=== PATIENT | female | born 1960 | race Caucasian/White ===

== ENCOUNTER 2016-07-22 07:07 | Emergency (ER) | payer OTHER ==
[~2016-07-22] VITALS: Ht 167.6 cm; Wt 93.0 kg
--- NOTE | 2016-07-22 07:23 | ED CARDIAC/CP/PALPITATIONS ---
History of Present Illness General Chief Complaint: Chest Pain Stated Complaint: CP, L ARM AND NECK PAIN, HX OF PE Source: patient, old records Exam Limitations: no limitations Vital Signs & Intake/Output Vital Signs & Intake/Output Vital Signs Date Time Temp Pulse Resp B/P Pulse O2 O2 Flow FiO2 Ox Delivery Rate 07/22 1116 97.5 67 18 138/80 97 Room Air 07/22 0808 97 Room Air 07/22 0717 97.5 86 20 164/97 97 Room Air Allergies Coded Allergies: diphenhydramine (From BENADRYL) (Severe, "MAKES ME CRAZY" 07/22/16) aspirin (BRUISING 07/22/16) Triage Note: PT C/O CP THAT WOKE HER FROM SLEEP LAST NIGHT. STATES MILD SOB, PAIN UNDER LEFT BREAST AND IN LEFT ARM AND NECK. STATES PAIN SIMILIAR TO PE PAIN SHE HAD IN PAST. STATES SHE IS ON ELIQUIS Triage Nurses Notes Reviewed? yes HPI: Patient was awoken at some point during the night with a pressure feeling underneath her left breast. Patient was able to go back to sleep but the pain again woke her up at 5:30 this morning. Patient states that the pain is similar to the pain that she had when she had a pulmonary embolus last September. Patient has been taking her ELIQUIS prescribed. Patient states she feels a little bit short of breath. The pain radiates to her left shoulder. She rates the pain at 6 out of 10. There are no aggravating or mitigating factors. The pain is constant. Past History Travel History Traveled to [place] past 21 day No Medical History Any Pertinent Medical History? see below for history Respiratory: pulmonary embolism Gastrointestinal: GERD Surgical History Surgical History: non-contributory Psychosocial History What is your primary language Kuwaiti Tobacco Use: Never used ETOH Use: occasional use Illicit Drug Use: denies illicit drug use Family History Hx Contributory? No Review of Systems Review of Systems Constitutional: Reports: no symptoms. EENTM: Reports: no symptoms. Respiratory: Reports: see HPI, short of breath. Cardiovascular: Reports: see HPI, chest pain. GI: Reports: no symptoms. Genitourinary: Reports: no symptoms. Musculoskeletal: Reports: no symptoms. Skin: Reports: no symptoms. Neurological/Psychological: Reports: no symptoms. Hematologic/Endocrine: Reports: no symptoms. Immunologic/Allergic: Reports: no symptoms. All Other Systems: Reviewed and Negative Physical Exam Physical Exam General Appearance: well developed/nourished, alert, awake, anxious, moderate distress Head: atraumatic, normal appearance Eyes: Bilateral: PERRL, EOMI. Ears, Nose, Throat: normal pharynx, normal ENT inspection, hearing grossly normal Neck: normal inspection, supple, full range of motion Respiratory: normal breath sounds, chest non-tender, no respiratory distress, lungs clear Cardiovascular: regular rate/rhythm, normal peripheral pulses Gastrointestinal: normal bowel sounds, soft, non-tender, no organomegaly Back: normal inspection, normal range of motion Extremities: normal inspection, normal capillary refill, normal range of motion, no edema Neurologic/Psych: no motor/sensory deficits, awake, alert, oriented x 3, normal mood/affect Skin: intact, normal color, warm/dry Lymphatic: no anterior cervical mi Core Measures ACS in differential dx? Yes ASA ordered for poss ACS? No-ACS ruled out Severe Sepsis Present: No Septic Shock Present: No Progress Differential Diagnosis: AMI, cholecystitis, costochondritis, musculoskeletal pain, myocarditis, pericarditis, pneumonia, pneumothorax, pulmonary embolism Plan of Care: Orders Procedure Date/time Status Heart Healthy Diet 07/22 D Active TROPONIN LEVEL 07/22 1154 Complete Telemetry/Slate Picker 07/22 0729 Active URINALYSIS 07/22 0729 Complete TROPONIN LEVEL 07/22 0729 Complete COMPREHENSIVE METABOLIC PANEL 07/22 0729 Complete CBC WITHOUT DIFFERENTIAL 07/22 0729 Complete EKG 07/22 0708 Active Laboratory Tests 07/22/16 1202: Troponin I < 0.01 07/22/16 0743: Anion Gap 9, Estimated GFR > 60, BUN/Creatinine Ratio 18.6, Glucose 102 H, Calcium 9.5, Total Bilirubin 0.6, AST 26, ALT 42, Alkaline Phosphatase 72, Troponin I < 0.01, Total Protein 7.1, Albumin 4.2, Globulin 2.9, Albumin/ Globulin Ratio 1.4, CBC w Diff NO MAN DIFF REQ, RBC 4.43, MCV 85.2, MCH 28.5, RDW 14.3, MPV 7.6, Gran % 65.5, Lymphocytes % 24.1, Monocytes % 7.8, Eosinophils % 2.2, Basophils % 0.4, Absolute Granulocytes 3.1, Absolute Lymphocytes 1.1 L, Absolute Monocytes 0.4, Absolute Eosinophils 0.1, Absolute Basophils 0, PUBS MCHC 33.5, Urine Color STRAW, Urine Clarity CLEAR, Urine pH 6.5, Ur Specific Garvin <= 1.005, Urine Protein NEG, Urine Ketones NEG, Urine Nitrite NEG, Urine Bilirubin NEG, Urine Urobilinogen 0.2, Ur Leukocyte Esterase NEG, Ur Microscopic SEDIMENT EXAMINED, Urine RBC RARE, Urine WBC RARE, Urine Hemoglobin TRACE-INTACT , Urine Glucose NEG Diagnostic Imaging: Viewed by Me: Radiology Read. Discussed w/RAD: Radiology Read. Radiology Impression: PATIENT: VIK MUSA PRESENT AGE : 55 PATIENT ACCOUNT NO: [id number] : 59 LOCATION: ER ORDERING PHYSICIAN: ERASTO ANDREW MD SERVICE DATE: 07/22/16 EXAM TYPE: US - US-EXT BILAT VENOUS DOPPLER EXAMINATION: US TRIPLEX LOWER EXTREMITY, BILATERAL CLINICAL INFORMATION: Chest pain and dyspnea on exertion; clinical question of pulmonary embolus; rule out deep venous thrombosis. COMPARISON: None. TECHNIQUE: Color-flow triplex imaging with spectral analysis and compression Doppler were performed on the bilateral lower extremities. FINDINGS: Respiratory variation, normal compression and augmented flow are noted throughout the bilateral lower extremities. The visualized common femoral vein, proximal greater saphenous vein , femoral vein, profunda femoral vein, popliteal vein and visualized mid calf venous segments show no evidence of deep venous thrombosis. There is no Yarbrough's cyst. IMPRESSION: Normal triplex scan without evidence of deep venous thrombosis involving the bilateral lower extremities. DICTATED BY: AGUS DELGADO MD DATE/ TIME DICTATED:07/22/16911 METAL FABRICATOR:MICKIE DATE/TIME TRANSCRIBED: 07/22/16911 CONFIDENTIAL, DO NOT COPY WITHOUT APPROPRIATE AUTHORIZATION. < Electronically signed in Other Vendor System> SIGNED BY: AGUS DELGADO MD 07/22/16 0925, PATIENT: VIK MUSA PRESENT AGE: 55 PATIENT ACCOUNT NO: [id number] : 59 LOCATION: ER ORDERING PHYSICIAN: ERASTO ANDREW MD SERVICE DATE: 07/22/16 EXAM TYPE: NUC - LUNG SCAN (V/Q) EXAMINATION: NM LUNG SCAN V/Q CLINICAL INFORMATION: Chest pain. COMPARISON : Chest x-ray dated 07/22/2016 TECHNIQUE: Perfusion scan performed following intravenous administration of 4.4 mCi technetium 99m MAA. Images performed in multiple projections. Ventilation scan utilizing 17.3 mCi xenon 133. First breath, equilibrium and washout images obtained in posterior projection. FINDINGS: Perfusion: Nonsegmental decreased perfusion noted in the left mid to lower lung. No evidence of a segmental or large subsegmental perfusion defects. Ventilation: No evidence of a perfusion defect. Washout images demonstrate tract radiotracer in the left lower lung likely representing underlying COPD. IMPRESSION: 1. Low probability for acute pulmonary embolism. 2. Trapping noted in the left lower lung on washout images may represent underlying COPD. DICTATED BY: NASIR MERCHANT MD DATE/TIME DICTATED:07/22/161139 METAL FABRICATOR: MICKIE DATE/TIME TRANSCRIBED:07/22/161139 CONFIDENTIAL, DO NOT COPY WITHOUT APPROPRIATE AUTHORIZATION. <Electronically signed in Other Vendor System> SIGNED BY: NASIR MERCHANT MD 07/22/16 115 CXR Impression: PATIENT: VIK MUSA PRESENT AGE: 55 PATIENT ACCOUNT NO: [id number] : 59 LOCATION: [facility] ORDERING PHYSICIAN: ERASTO ANDREW MD SERVICE DATE: 07/22/16 EXAM TYPE: RAD - XRY- PORTABLE CHEST XRAY EXAMINATION: XR PORTABLE CHEST CLINICAL INFORMATION: Chest pain COMPARISON: None. TECHNIQUE: Portable view of the chest was obtained. FINDINGS: Minimal linear opacity left base compatible discoid atelectasis. Otherwise significant abnormality is noted involving the heart, lungs, mediastinum, bony thorax or soft tissues. IMPRESSION: Minimal discoid atelectasis left base DICTATED BY: NELSON STUART MD DATE/TIME DICTATED:805 METAL FABRICATOR:MICKIE DATE/TIME TRANSCRIBED:07/22/16805 CONFIDENTIAL, DO NOT COPY WITHOUT APPROPRIATE AUTHORIZATION. <Electronically signed in Other Vendor System> SIGNED BY: NELSON STUART MD 07/22/16809 Initial ED EKG: NSR, no ST T wave changes Rhythm Strip: normal sinus rhythm Comments: Patient had an abnormal stress test in May show then she had a nuclear stress which came back normal in early June. Departure Departure Disposition: HOME OR SELF CARE Condition: Stable Clinical Impression Primary Impression: Chest pain, unspecified Qualifiers: Chest pain type: other chest pain Qualified Code: R07.89 - Other chest pain Additional Instructions: REUTRN IF SYMPTOMS WORSEN OR FOR ANY CONCERNS Departure Forms: Customer Survey General Discharge Information Critical Care Note Critical Care Note Critical Care Time: mins: (30 MINUTES)
[2016-07-22 08:06] LABS: ABSOLUTE BASOPHIL COUNT 0 /CUMM (0.0-0.2); ABSOLUTE EOSINOPHIL COUNT 0.1 /CUMM (0.0-0.7); ABSOLUTE GRANULOCYTE CT 3.1 /CUMM (1.4-6.5); ABSOLUTE LYMPH COUNT 1.1 /CUMM (1.2-3.4); ABSOLUTE MONOCYTE COUNT 0.4 /CUMM (0.10-0.60); BASOPHIL % 0.4 % (0.0-2.0); EOSINOPHIL % 2.2 % (0-5); GRANULOCYTE % 65.5 % (42.2-75.2); HEMATOCRIT 37.7 % (37-47); MEAN CORPUSCULAR HGB 28.5 PG (27.0-31.0); MEAN CORPUSCULAR HGB CONC 33.5 G/DL (33.0-37.0); MEAN CORPUSCULAR VOLUME 85.2 FL (81.0-99.0); MEAN PLATELET VOLUME 7.6 FL (7.4-10.4); PLATELET COUNT 220 /CUMM (130-400); RBC DISTRIBUTION WIDTH 14.3 % (11.5-14.5); RED BLOOD CELL CT 4.43 /CUMM (4.20-5.40); WHITE BLOOD CELL COUNT 4.7 /CUMM (4.8-10.8)
--- NOTE | 2016-07-22 08:10 | RADIOLOGY REPORT ---
EXAMINATION: XR PORTABLE CHEST CLINICAL INFORMATION: Chest pain COMPARISON: None. TECHNIQUE: Portable view of the chest was obtained. FINDINGS: Minimal linear opacity left base compatible discoid atelectasis. Otherwise significant abnormality is noted involving the heart, lungs, mediastinum, bony thorax or soft tissues. IMPRESSION: Minimal discoid atelectasis left base
--- NOTE | 2016-07-22 09:25 | ULTRASOUND REPORT ---
EXAMINATION: US TRIPLEX LOWER EXTREMITY, BILATERAL CLINICAL INFORMATION: Chest pain and dyspnea on exertion; clinical question of pulmonary embolus; rule out deep venous thrombosis. COMPARISON: None. TECHNIQUE: Color-flow triplex imaging with spectral analysis and compression Doppler were performed on the bilateral lower extremities. FINDINGS: Respiratory variation, normal compression and augmented flow are noted throughout the bilateral lower extremities. The visualized common femoral vein, proximal greater saphenous vein, femoral vein, profunda femoral vein, popliteal vein and visualized mid calf venous segments show no evidence of deep venous thrombosis. There is no Yarbrough's cyst. IMPRESSION: Normal triplex scan without evidence of deep venous thrombosis involving the bilateral lower extremities.
--- NOTE | 2016-07-22 11:50 | NUCLEAR MEDICINE REPORT ---
EXAMINATION: NM LUNG SCAN V/Q CLINICAL INFORMATION: Chest pain. COMPARISON: Chest x-ray dated 07/22/2016 TECHNIQUE: Perfusion scan performed following intravenous administration of 4.4 mCi technetium 99m MAA. Images performed in multiple projections. Ventilation scan utilizing 17.3 mCi xenon 133. First breath, equilibrium and washout images obtained in posterior projection. FINDINGS: Perfusion: Nonsegmental decreased perfusion noted in the left mid to lower lung. No evidence of a segmental or large subsegmental perfusion defects. Ventilation: No evidence of a perfusion defect. Washout images demonstrate tract radiotracer in the left lower lung likely representing underlying COPD. IMPRESSION: 1. Low probability for acute pulmonary embolism. 2. Trapping noted in the left lower lung on washout images may represent underlying COPD.
[2016-07-22 13:35] VITALS: BP 132/86
[2016-07-22] MEDS ORDERED: ELIQUIS5 M1 PO (13:36)
[2016-07-22] MEDS ORDERED: OMEPRAZOLE40 M1 PO (13:36)
== END 2016-07-22 13:37 ==
LOC: ERH 07:07
PROVIDERS: Emergency Medicine
DX: R07.9 Chest pain, unspecified (principal); R06.02 Shortness of breath
CPT/HCPCS: 78582; 81001; 93005; 93010; 93970; 96374; A9540; A9558; J1885